=== PATIENT | female | born 1945 | race Caucasian/White ===

== ENCOUNTER 2017-05-27 12:15 | Emergency (ER) | payer OTHER ==
[~2017-05-27] VITALS: Ht 149.9 cm; Wt 63.5 kg
[~2017-05-27 12:15] MED LIST: ASPIR LOW81 MG PO; FENOFIBRATE MI134 MG PO; LAC PO; LEVAQUIN750 MG PO; LORATADINE10 MG PO; METFORMIN HCL500 MG PO; SIMVASTATIN20 M1 PO
[2017-05-27 12:45] VITALS: Ht 149.9 cm; Wt 63.5 kg
[2017-05-27 18:46] VITALS: BP 156/84
== END 2017-05-27 18:46 | disposition home or self-care (01) ==
LOC: ED 12:15
DX: S52.501A Unspecified fracture of the lower end of right radius, initial encounter for closed fracture (principal); S52.614A Nondisplaced fracture of right ulna styloid process, initial encounter for closed fracture; E11.9 Type 2 diabetes mellitus without complications; E78.00 Pure hypercholesterolemia, unspecified; W01.0XXA Fall on same level from slipping, tripping and stumbling without subsequent striking against object, initial encounter; Y93.89 Activity, other specified; Y92.89 Other specified places as the place of occurrence of the external cause; Y99.8 Other external cause status
CPT/HCPCS: J2001; J2060; J3490; J7030; Q0092